=== PATIENT | female | born 1955 | race Caucasian/White ===

== ENCOUNTER 2018-07-29 22:03 | Emergency (ER) | payer OTHER ==
[~2018-07-29] VITALS: Ht 165.1 cm; Wt 68.0 kg
[2018-07-29] MEDS ORDERED: CIPRO100 MG (22:18)
[2018-07-29] MEDS ORDERED: ZIRTEC (22:19)
[2018-07-29] MEDS ORDERED: PNEU16DI2 (22:20)
[2018-07-29] MEDS ORDERED: ALBUTEROL0.63 MG/3 (22:20)
[2018-07-30] MEDS ORDERED: ZOFRAN ODT4 MG PO (06:44)
== END 2018-07-30 06:54 ==
LOC: ER 22:03
DX: R10.31 Right lower quadrant pain (principal)